=== PATIENT | male | born 1975 | race Caucasian/White ===

== ENCOUNTER → 2024-09-29 | Outpatient (CLI) | payer OTHER, SELFPAY ==
[2024-09-29 16:41] LABS: Prostate Specific Antigen 0.34 ng/mL (0-4.00)
[2024-09-29 16:46] LABS: Alanine Aminotransferase 16 U/L (10-49); Albumin, Serum 4.5 gm/dL (3.5-5.0); Albumin/Globulin Ratio 1.7 (1.2-2.2); Alkaline Phosphatase 63 U/L (46-116); Anion Gap 9 (7-16); Aspartate Amino Transferase 22 U/L (0-34); BUN/Creatinine Ratio 7 Ratio (12-20); Bilirubin,Total 0.8 mg/dL (0.3-1.2); Blood Urea Nitrogen 8 mg/dL (9-23); Calcium 9.5 mg/dL (8.3-10.6); Calcium (Corrected) 9.5 mg/dL (8.5-10.1); Carbon Dioxide 25.6 mMol/L (20.0-31.0); Chloride 107 mMol/L (98-107); Creatinine (Component) 1.2 mg/dL (0.6-1.3); Globulin 2.7 gm/dL (2.3-3.5); Glucose 89 mg/dL (74-106); Osmolality,Calculated 280 (275-295); Potassium 4.9 mMol/L (3.4-5.1); Sodium 142 mMol/L (136-145); Thyroid Stimulating Hormone 1.65 uIU/mL (0.55-4.78); Total Protein 7.2 gm/dL (5.7-8.2); Vitamin B12 770 pg/mL (211-911); Vitamin D 25 Hydroxy Total 40.5 ng/mL (7.3-40.2); eGFR > 60 See Note
[2024-09-29 17:09] LABS: Urea Breath Test Negative (Negative)
[2024-10-06 06:29] LABS: Testosterone, Free,Dialysis 54.9 pg/mL (35.0-155.0); Testosterone, Total, Dialysis 272 ng/dL (250-1100)
== END | disposition home or self-care (01) ==
LOC: COPL 15:09
PROVIDERS: PCP Family Medicine; Referring Provider Physician Assistant; Visit Provider Physician Assistant
DX: Z00.00 Encounter for general adult medical examination without abnormal findings (principal); E55.9 Vitamin D deficiency, unspecified; E29.1 Testicular hypofunction; R14.0 Abdominal distension (gaseous)
CPT/HCPCS: 36415; 80053; 81001; 82306; 82607; 83013; 83014; 84153; 84402; 84403; 84443